=== PATIENT | female | born 1960 | race Caucasian/White ===

== ENCOUNTER 2016-08-09 10:33 | Emergency (ER) | payer OTHER | END 2016-08-09 12:30 | disposition home or self-care (01) | DX: M62.830 Muscle spasm of back (principal); M54.32 Sciatica, left side; R03.0 Elevated blood-pressure reading, without diagnosis of hypertension ==

== ENCOUNTER 2017-01-10 12:40 | Emergency (ER) | payer OTHER ==
--- NOTE | 2017-01-10 13:51 | ED Physician Documentation ---
PD HPI NECK PAIN - Stated complaint Stated Complaint: NECK INJURY - Chief complaint Chief Complaint: General - History obtained from History obtained from: Patient - History of Present Illness Timing - onset: How many days ago (few days ago on roller coaster at [place] [employer] , had twist of neck with pain at the time.) Timing - duration: Days (few) Timing - details: Abrupt onset, Still present Location: Mid, Lower, Left Quality: Pain, Spasm, Aching Associated symptoms: No: Fever, Weakness, Numbness, Incontinent of urine Worsened by: Twisting Contributing factors: Twisting Similar symptoms before: Has not had sx before Recently seen: Not recently seen Review of Systems Constitutional: denies: Fever, Chills Ears: denies: Ear pain Throat: denies: Sore throat Cardiac: denies: Chest pain / pressure, Palpitations Respiratory: denies: Dyspnea, Cough Neurologic: denies: Focal weakness, Numbness, Altered mental status, Headache, Head injury PD PAST MEDICAL HISTORY - Past Medical History Cardiovascular: None Respiratory: None Neuro: None Endocrine/Autoimmune: None GI: None 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 Psych: Depression Musculoskeletal: Fibromyalgia, Other - Past Surgical History Past Surgical History: Yes - Present Medications Home Medications: Ambulatory Orders Medication Instructions Recorded Confirmed Escitalopram [Lexapro] 0 mg ORAL DAILY 11/03/15 08/09/16 Gabapentin 150 mg ORAL TID 01/13/16 08/09/16 Hydrocodone/Acetaminophen 1 - 2 each PO Q6H PRN #14 tablet 08/09/16 [Hydrocodon-Acetaminophen 5-325] Methocarbamol [Robaxin-750] 750 mg PO Q8H PRN #14 tablet 08/09/16 HYDROcod/ACETAM 5/325 [[place] 5/325] 1 tab PO Q6H PRN #20 tablet 01/10/17 Methocarbamol [Robaxin] 500 mg PO Q6H PRN #25 tablet 01/10/17 - Allergies Allergies/Adverse Reactions: Allergies Allergy/AdvReac Type Severity Reaction Status Date / Time No Known Drug Allergies Allergy Verified 01/13/16 08:34 - Social History Does the pt smoke?: No Smoking Status: Never smoker Does the pt drink ETOH?: No Does the pt have substance abuse?: No - Immunizations Immunizations are current?: Yes - POLST Patient has POLST: No PD ED PE NORMAL - Vitals Vital signs reviewed: Yes - General General: Alert and oriented X 3, No acute distress, Well developed/nourished - HEENT HEENT: Pharynx benign - Neck Neck: Supple, no meningeal sign, No bony TTP (tender left lateral muscles. ), No adenopathy - Respiratory Respiratory: No respiratory distress, Clear bilaterally - Back Back: No spinal TTP - Derm Derm: Normal color, Warm and dry - Neuro Neuro: Alert and oriented X 3, No motor deficit, No sensory deficit, Normal speech Results - Vitals Vitals: Oxygen O2 Source Room air PD MEDICAL DECISION MAKING - ED course Complexity details: considered differential, d/w patient Departure - Departure Disposition: Home, Self Care Clinical Impression: Cervical strain Qualifiers: Encounter type: initial encounter Qualified Code(s): S16.1XXA - Strain of muscle, fascia and tendon at neck level, initial encounter Condition: Stable Record reviewed to determine appropriate education?: Yes Instructions: ED Sprain Strain Neck Prescriptions: HYDROcod/ACETAM 5/325 [[place] 5/325] 1 tab PO Q6H PRN #20 tablet PRN Reason: Pain Methocarbamol [Robaxin] 500 mg PO Q6H PRN #25 tablet PRN Reason: Spasms Comments: Continue ibuprofen 400-600 mg 3 times a day. Ice to the area if it feels better. Could also try heat to reduce stiffness. Methocarbamol for muscle spasms. Add Tylenol or hydrocodone if needed for pain. Recheck if not better over the next several days. Discharge Date/Time: 01/10/17 14:35
[2017-01-10] MEDS ORDERED: IBUPROFEN 600 MG TABLET PO STA (13:58)
[2017-01-10] MEDS ORDERED: TRIAMCINOLONE 40 MG/ML VIAL IM STA (13:58)
[2017-01-10] MEDS ORDERED: ACETAMINOPHEN 325 MG TABLET PO STA (13:58)
[2017-01-10] MEDS ORDERED: ACETAMINOPHEN 325 MG TABLET PO ONE (14:01)
[2017-01-10] MEDS ORDERED: TRIAMCINOLONE 40 MG/ML VIAL ONE (14:01)
[2017-01-10] MEDS ORDERED: IBUPROFEN 600 MG TABLET PO ONE (14:02)
[2017-01-10 14:31] VITALS: BP 148/97
== END 2017-01-10 14:35 | disposition home or self-care (01) ==
LOC: ED 12:40
DX: S16.1XXA Strain of muscle, fascia and tendon at neck level, initial encounter (principal); X50.0XXA Overexertion from strenuous movement or load, initial encounter; Y93.I1 Activity, roller coaster riding; Y92.831 Amusement park as the place of occurrence of the external cause; M79.7 Fibromyalgia
CPT/HCPCS: 96372; 99283; A9270

== ENCOUNTER 2017-01-31 13:06 | Emergency (ER) | payer OTHER ==
--- NOTE | 2017-01-31 14:18 | ED Physician Documentation ---
PD HPI LOWER EXT INJURY - Stated complaint Stated Complaint: LEFT TOE INJ - Chief complaint Chief Complaint: Ext Problem - History obtained from History obtained from: Patient - History of Present Illness PD HPI LOW EXT INJURY LOCATION: Left, Foot Type of injury: Blunt / blow Where injury occurred: Home Timing - onset: How many days ago (3) Timing - duration: Days (3) Timing - details: Abrupt onset, Still present Improved by: Rest, Ice, Immobilization Worsened by: Moving, Palpating Associated symptoms: Swelling. No: Weakness, Numbness Contributing factors: No: Anticoagulated Similar symptoms before: Has not had sx before Recently seen: Not recently seen - Additional information Additional information: 56-year-old female stubbed her toes on the right side while she was camping and she has developed pain in the toes and is having some difficulty walking having to limp when she walks. She is having some swelling and discoloration. The pain is mostly to the second through fifth toe on the dorsal surface. Review of Systems Constitutional: denies: Fever Respiratory: denies: Cough GI: denies: Vomiting Skin: denies: Rash Musculoskeletal: reports: Extremity pain, Extremity swelling, Pain with weight bearing. 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 Psych: Depression Musculoskeletal: Fibromyalgia, Other - Past Surgical History Past Surgical History: Yes - Present Medications Home Medications: Ambulatory Orders Medication Instructions Recorded Confirmed Escitalopram [Lexapro] 10 mg ORAL DAILY 11/03/15 01/31/17 Gabapentin 150 mg ORAL TID 01/13/16 01/31/17 HYDROcod/ACETAM 5/325 [[place] 5/325] 1 - 2 ea PO Q6H PRN #15 tablet 01/31/17 - Allergies Allergies/Adverse Reactions: Allergies Allergy/AdvReac Type Severity Reaction Status Date / Time No Known Drug Allergies Allergy Verified 01/31/17 14:13 - Social History Does the pt smoke?: No Smoking Status: Never smoker Does the pt drink ETOH?: No Does the pt have substance abuse?: No - Immunizations Immunizations are current?: Yes - POLST Patient has POLST: No PD ED PE NORMAL - Vitals Vital signs reviewed: Yes (hypertensive ) - General General: No acute distress, Well developed/nourished - HEENT HEENT: Atraumatic, PERRL - Respiratory Respiratory: No respiratory distress - Derm Derm: Normal color, Warm and dry, No rash - Extremities Extremities: Other (There is tenderness swelling and discoloration over the second through fifth toe on the left foot. Distal neurovascular components are intact the nails all appear intact. She does not have pain to palpation of the plantar surface of the distal metatarsals.) - Neuro Neuro: No motor deficit, No sensory deficit - Psych Psych: Normal mood, Normal affect Results - Vitals Vitals: Vital Signs - 24 hr 01/31/17 13:11 Temperature 36.5 C Heart Rate 100 Respiratory 18 Rate Blood Pressure 164/84 H O2 Saturation 96 Oxygen O2 Source Room air - Rads (name of study) Left foot Radiology: Prelim report reviewed (Impression: No fracture.), EMP read indepedently, See rad report PD MEDICAL DECISION MAKING - ED course Complexity details: reviewed results, re-evaluated patient, considered differential, d/w patient ED course: 56-year-old female who stubbed her toes without evidence of fracture. Departure - Departure Disposition: 01 Home, Self Care Clinical Impression: Contusion of left foot including toes Qualifiers: Encounter type: initial encounter Qualified Code(s): S90.122A - Contusion of left lesser toe(s) without damage to nail, initial encounter Condition: Stable Instructions: ED Contusion Foot Follow-Up: Your, doctor [Other] Prescriptions: HYDROcod/ACETAM 5/325 [[place] 5/325] 1 - 2 ea PO Q6H PRN #15 tablet PRN Reason: Pain Comments: Today in the Emergency Department your blood pressure was elevated. This can happen from the stress of the visit itself, from a current illness or circumstance or from uncontrolled hypertension. If you take blood pressure medications take your usual mediations, have your blood pressure re-checked in an appropriate setting and follow up any elevation with your primary care doctor.
--- NOTE | 2017-01-31 15:15 | XRAY Preliminary Report ---
Exam: XR Foot 3 View LT IMPRESSION: No fracture. [facility] SITE ID: [id number]
--- NOTE | 2017-01-31 15:18 | XRAY Report ---
EXAM: LEFT FOOT RADIOGRAPHY EXAM DATE: 01/31/2017 02:43 PM. CLINICAL HISTORY: Stubbed 2,3,4. COMPARISON: None. TECHNIQUE: 3 views. FINDINGS: Bones: Normal. No fractures or bone lesions. Joints: Normal. No subluxations. Soft Tissues: Normal. No soft tissue swelling. IMPRESSION: No fracture. [facility] Referring Provider Line: [phone] SITE ID: [id number]
[2017-01-31 16:16] VITALS: BP 162/97
== END 2017-01-31 16:14 | disposition home or self-care (01) ==
LOC: ED 13:06
DX: S90.122A Contusion of left lesser toe(s) without damage to nail, initial encounter (principal); W18.40XA Slipping, tripping and stumbling without falling, unspecified, initial encounter; Y92.009 Unspecified place in unspecified non-institutional (private) residence as the place of occurrence of the external cause; R03.0 Elevated blood-pressure reading, without diagnosis of hypertension; M79.7 Fibromyalgia
CPT/HCPCS: 99283

== ENCOUNTER 2017-05-17 12:48 | Emergency (ER) | payer OTHER ==
[2017-05-17 12:54] VITALS: BP 157/99
--- NOTE | 2017-05-17 12:57 | ED Physician Documentation ---
PD HPI URI - History obtained from History obtained from: Patient - History of Present Illness Timing duration: Other (She has an ongoing sinus infection with facial pain on the left side, it radiates into the teeth and ear and is worse if she leans forward he gets exposed to a cold wind. She has sinus congestion with drainage that is foul-smelling especially in the morning. There is no associated diplopia or fever. About 4 weeks ago she took a 10 day course of Augmentin which was very helpful but the symptoms relapsed 4 days ago.) <Elvin Lowery - Last Filed: 05/17/17 13:03> - History obtained from History obtained from: Patient <BlueSean - Last Filed: 05/17/17 13:05> - Stated complaint Stated Complaint: LT FACIAL PX - Chief complaint Chief Complaint: Heent Review of Systems Constitutional: reports: Fatigue. denies: Fever, Chills Ears: reports: Ear pain Nose: reports: Rhinorrhea / runny nose, Congestion, Sinus pressure / pain. 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 Psych: Depression Musculoskeletal: Fibromyalgia, Other - Past Surgical History Past Surgical History: Yes - Social History Does the pt smoke?: No Smoking Status: Never smoker Does the pt drink ETOH?: No Does the pt have substance abuse?: No - Immunizations Immunizations are current?: Yes - POLST Patient has POLST: No <BlueSean - Last Filed: 05/17/17 13:05> - Present Medications Home Medications: Ambulatory Orders Medication Instructions Recorded Confirmed Escitalopram [Lexapro] 10 mg ORAL DAILY 11/03/15 05/17/17 Amox/Clav 875/125 [Augmentin] 1 each PO Q12H #28 tablet 05/17/17 HYDROcod/ACETAM 5/325 [[place] 5/325] 1 - 2 ea PO Q6H PRN #10 tablet 05/17/17 Mometasone Furoate [Nasonex] 1 spray NS BID #1 spray.pump 05/17/17 predniSONE [Deltasone] 60 mg PO DAILY 5 Days tablet 05/17/17 - Allergies Allergies/Adverse Reactions: Allergies Allergy/AdvReac Type Severity Reaction Status Date / Time No Known Drug Allergies Allergy Verified 05/17/17 12:53 PD ED PE NORMAL - Vitals Vital signs reviewed: Yes - General General: Alert and oriented X 3, No acute distress - HEENT HEENT: Other (Left maxillary and frontal sinus tenderness, she has a lot of dental work but none of her teeth are tender. Smile is symmetric and extraocular movements are intact, TM is slightly red on the left but without fluid behind it.) - Neck Neck: Supple, no meningeal sign, No bony TTP - Neuro Neuro: Alert and oriented X 3, search marketing specialist 2-12 intact, Normal speech - Psych Psych: Normal mood, Normal affect <Elvin Lowery - Last Filed: 05/17/17 13:03> - Vitals Vitals: Vital Signs - 24 hr 05/17/17 12:50 Temperature 36.9 C Heart Rate 96 Respiratory 18 Rate Blood Pressure 157/99 H O2 Saturation 99 Oxygen O2 Source Room air PD MEDICAL DECISION MAKING <Elvin Lowery - Last Filed: 05/17/17 13:03> <Sean Blue - Last Filed: 05/17/17 13:05> - ED course ED course: The patient and family were counseled as to the diagnosis and need for follow- up. I counseled the patient with regard to signs and symptoms that would necessitate an urgent reevaluation in the emergency department. They understand they are welcome to return at any time if worse or if not improving as expected. This document was made in part using voice recognition software. While efforts are made to proofread this documents, sound alike and grammatical errors may occur. (Elvin Lowery) Departure - Departure Record reviewed to determine appropriate education?: Yes <Elvin Lowery - Last Filed: 05/17/17 13:03> <Sean Blue - Last Filed: 05/17/17 13:05> - Departure Disposition: 01 Home, Self Care Clinical Impression: Sinusitis Qualifiers: Sinusitis location: maxillary Chronicity: acute Recurrence: recurrent Qualified Code(s): J01.01 - Acute recurrent maxillary sinusitis Condition: Good Instructions: ED Sinusitis Abx Tx Prescriptions: Amox/Clav 875/125 [Augmentin] 1 each PO Q12H #28 tablet HYDROcod/ACETAM 5/325 [[place] 5/325] 1 - 2 ea PO Q6H PRN #10 tablet PRN Reason: Pain Mometasone Furoate [Nasonex] 1 spray NS BID #1 spray.pump predniSONE [Deltasone] 60 mg PO DAILY 5 Days tablet Comments: Call your doctor to arrange a follow-up appointment, make the next available appointment. In the interim, return anytime if worse or if new symptoms develop. Your blood pressure was elevated today on check into the emergency department. This does not mean that you have hypertension, it is a common phenomenon to come to the emergency department and have elevated blood pressure. I recommend that you see your primary care physician within the week to have it rechecked when you are feeling better.
== END 2017-05-17 13:11 | disposition home or self-care (01) ==
LOC: ED 12:48
DX: J01.01 Acute recurrent maxillary sinusitis (principal); R03.0 Elevated blood-pressure reading, without diagnosis of hypertension
CPT/HCPCS: 99283

== ENCOUNTER 2017-06-06 08:02 | Outpatient (CLI) | payer OTHER | END 2017-06-06 08:03 | disposition home or self-care (01) | LOC: DI 08:02 | PROVIDERS: ATTEND Family Medicine | DX: R00.2 Palpitations (principal) | CPT/HCPCS: 93306 ==

== ENCOUNTER 2017-06-26 10:56 | Emergency (ER) | payer OTHER ==
[2017-06-26 11:10] VITALS: BP 146/83
--- NOTE | 2017-06-26 13:31 | ED Physician Documentation ---
History of Present Illness - Stated complaint Stated Complaint: CONGESTION - Chief complaint Chief Complaint: General - History obtained from History obtained from: Patient - History of Present Illness Timing: How many weeks ago (12) Pain level max: 8 Pain level now: 8 Improved by: vicodin Worsened by: bending over - Additonal information Additional information: Patient is a 48-year-old female who presents to the emergency department complaining of left-sided facial pain for the past 12-14 weeks. It improves mildly with antibiotics, then recurs. Has had sinus surgery 2. Is awaiting an ENT referral from her doctor. Contacted her primary care provider last week , but they state they have no appointments for her. Therefore she came to the emergency department. No fevers. No vomiting. Does have rhinorrhea and congestion. She is currently on Claritin. 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 Psych: Depression Musculoskeletal: Fibromyalgia, Other - Past Surgical History Past Surgical History: Yes - Present Medications Home Medications: Ambulatory Orders Medication Instructions Recorded Confirmed Escitalopram [Lexapro] 10 mg ORAL DAILY 11/03/15 06/26/17 Mometasone Furoate [Nasonex] 1 spray NS BID #1 spray.pump 05/17/17 06/26/17 Clindamycin HCl [Clindamycin 300MG 300 mg PO Q6H #40 capsule 06/26/17 CAP] Hydrocodone/Acetaminophen 1 - 2 each PO Q6H PRN #14 tablet 06/26/17 [Hydrocodon-Acetaminophen 5-325] amLODIPine [Norvasc] 1 tab PO DAILY 06/26/17 06/26/17 predniSONE [Prednisone] 40 mg PO DAILY #10 tablet 06/26/17 - Allergies Allergies/Adverse Reactions: Allergies Allergy/AdvReac Type Severity Reaction Status Date / Time No Known Drug Allergies Allergy Verified 06/26/17 11:10 - Social History Does the pt smoke?: No Smoking Status: Never smoker Does the pt drink ETOH?: No Does the pt have substance abuse?: No - Immunizations Immunizations are current?: Yes - POLST Patient has POLST: No PD ED PE NORMAL - Vitals Vital signs reviewed: Yes - General General: Alert and oriented X 3, No acute distress - HEENT HEENT: Ears normal, Moist mucous membranes, Pharynx benign, Other (TTP over the L maxillary and frontal sinuses.) - Neck Neck: Supple, no meningeal sign, No adenopathy - Cardiac Cardiac: RRR - Respiratory Respiratory: No respiratory distress, Clear bilaterally - Abdomen Abdomen: Soft, Non tender, Non distended - Derm Derm: Warm and dry - Neuro Neuro: Alert and oriented X 3 Results - Vitals Vitals: Vital Signs - 24 hr 06/26/17 11:06 Temperature 36.8 C Heart Rate 84 Respiratory 20 Rate Blood Pressure 146/83 H O2 Saturation 97 Oxygen O2 Source Room air PD MEDICAL DECISION MAKING - ED course Complexity details: considered differential, d/w patient ED course: Patient is a 56-year-old female presents to the emergency department with what appears to be chronic sinusitis. Will place her back on antibiotics and pain medication. We will have her do saline nasal rinses. Also place on oral steroids. We will have her change from Claritin to Claritin-D and see if this helps her symptoms. Will have her follow-up with her doctor for further evaluation and care. She is well-appearing, nontoxic. Afebrile. Inflamed nasal turbinates on examination of the nasopharynx. Patient counseled regarding signs and symptoms for which I believe and urgent re-evaluation would be necessary. Patient with good understanding of and agreement to plan and is comfortable going home at this time This document was made in part using voice recognition software. While efforts are made to proofread this document, sound alike and grammatical errors may occur. Departure - Departure Disposition: 01 Home, Self Care Clinical Impression: Chronic sinusitis Qualifiers: Sinusitis location: maxillary Qualified Code(s): J32.0 - Chronic maxillary sinusitis Condition: Good Instructions: ED Sinusitis Abx Tx Follow-Up: MURALI AZEVEDO [Primary Care Provider] - Within 1 week Prescriptions: Clindamycin HCl [Clindamycin 300MG CAP] 300 mg PO Q6H #40 capsule Hydrocodone/Acetaminophen [Hydrocodon-Acetaminophen 5-325] 1 - 2 each PO Q6H PRN #14 tablet PRN Reason: pain predniSONE [Prednisone] 40 mg PO DAILY #10 tablet Comments: You should also be performing saline irrigation of your sinuses twice a day. A netti pot or similar can be used for this. Return if you worsen. You should also change to claritin D. Do not drink alcohol or drive while on narcotic pain medicine. Note that many narcotic pain relievers also contain tylenol/acetaminophen. Please ensure that your total dose of acetaminophen from all sources does not exceed 3 grams (3000mg) per day. You may constipated on this medication, take a stool softener such as "Colace" twice a day while you are on it. Also recommend a elju-ebk-bmzmkei laxative such as senna or MiraLAX any day that you do not have a bowel movement. If you received narcotic pain medication in the emergency department, do not drive or operate machinery for the next 24 hours.
== END 2017-06-26 13:49 | disposition home or self-care (01) ==
LOC: ED 10:56
DX: J32.0 Chronic maxillary sinusitis (principal)
CPT/HCPCS: 99283

== ENCOUNTER 2017-09-28 13:36 | Emergency (ER) | payer OTHER ==
--- NOTE | 2017-09-28 14:02 | ED Physician Documentation ---
PD PAINTING HEENT - Stated complaint Stated Complaint: CONGESTION - Chief complaint Chief Complaint: Heent - History obtained from History obtained from: Patient - History of Present Illness Timing - onset: Other (2 months of sinus pain, she has had 2 rounds of antibiotics, clindamycin in June was somewhat helpful, amoxicillin clavulanic acid [place] about a [place] was less so. Also steroids are helpful. She complains mostly of left maxillary sinus pain that radiates to the teeth and is much worse when leaning forward. There is no fevers.) Review of Systems Constitutional: denies: Fever, Chills Nose: reports: Congestion. 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 Psych: Depression Musculoskeletal: Fibromyalgia, Other - Past Surgical History Past Surgical History: Yes - Present Medications Home Medications: Ambulatory Orders Medication Instructions Recorded Confirmed Escitalopram [Lexapro] 10 mg ORAL DAILY 11/03/15 06/26/17 Mometasone Furoate [Nasonex] 1 spray NS BID #1 spray.pump 05/17/17 06/26/17 Clindamycin HCl [Clindamycin 300MG 300 mg PO Q6H #40 capsule 06/26/17 CAP] Hydrocodone/Acetaminophen 1 - 2 each PO Q6H PRN #14 tablet 06/26/17 [Hydrocodon-Acetaminophen 5-325] amLODIPine [Norvasc] 1 tab PO DAILY 06/26/17 06/26/17 predniSONE [Prednisone] 40 mg PO DAILY #10 tablet 06/26/17 Clindamycin [Cleocin] 300 mg PO Q6H 10 Days capsule 09/28/17 HYDROcod/ACETAM 5/325 [[place] 5/325] 1 - 2 ea PO Q6H PRN #15 tablet 09/28/17 predniSONE [Deltasone] 20 mg PO [id number] #21 tab 09/28/17 - Allergies Allergies/Adverse Reactions: Allergies Allergy/AdvReac Type Severity Reaction Status Date / Time No Known Drug Allergies Allergy Verified 06/26/17 11:10 - Social History Does the pt smoke?: No Smoking Status: Never smoker Does the pt drink ETOH?: No Does the pt have substance abuse?: No - Immunizations Immunizations are current?: Yes - POLST Patient has POLST: No PD ED PE NORMAL - Vitals Vital signs reviewed: Yes - General General: Alert and oriented X 3, No acute distress - HEENT HEENT: Other (Tender left maxillary sinus, TMs and oropharynx normal.) - Neck Neck: Supple, no meningeal sign, No bony TTP - Neuro Neuro: Alert and oriented X 3, Normal speech Results - Vitals Vitals: Vital Signs - 24 hr 09/28/17 13:41 Temperature 36.4 C L Heart Rate 104 H Respiratory 17 Rate Blood Pressure 141/100 H O2 Saturation 96 Oxygen O2 Source Room air PD MEDICAL DECISION MAKING - ED course ED course: Given long time course, antibiotic therapy is recommended per IDSA guidelines. I did not use amoxicillin clavulanic acid because that has already failed to help her and she has failed treatment with this. Departure - Departure Disposition: 01 Home, Self Care Clinical Impression: Sinusitis Qualifiers: Sinusitis location: maxillary Chronicity: chronic Qualified Code(s): J32.0 - Chronic maxillary sinusitis Condition: Good Record reviewed to determine appropriate education?: Yes Instructions: ED Sinusitis Abx Tx Prescriptions: Clindamycin [Cleocin] 300 mg PO Q6H 10 Days capsule HYDROcod/ACETAM 5/325 [[place] 5/325] 1 - 2 ea PO Q6H PRN #15 tablet PRN Reason: Pain predniSONE [Deltasone] 20 mg PO [id number] #21 tab Comments: Call your doctor to arrange a follow-up appointment, make the next available appointment. In the interim, return anytime if worse or if new symptoms develop. Your blood pressure was elevated today on check into the emergency department. This does not mean that you have hypertension, it is a common phenomenon to come to the emergency department and have elevated blood pressure. I recommend that you see your primary care physician within the week to have it rechecked when you are feeling better. Do not drink or drive while taking narcotic pain medication. Note that many narcotic pain relievers also contain Tylenol/acetaminophen. Please ensure that your total dose of acetaminophen from all sources does not exceed 3 g (3000 mg) per day. You may get constipated while on this medication. Take a stool softener such as Colace twice a day while you are on it. Also add an rjhd-ohb-heywxcc laxative such as senna or MiraLAX on any day that you do not have a bowel movement. If you received a narcotic pain medication or sedative while in the emergency department, do not drive for the next 24 hours.
[2017-09-28 14:25] VITALS: BP 158/90
== END 2017-09-28 14:34 | disposition home or self-care (01) ==
LOC: ED 13:36
DX: J32.0 Chronic maxillary sinusitis (principal); R03.0 Elevated blood-pressure reading, without diagnosis of hypertension
CPT/HCPCS: 99283

== ENCOUNTER 2017-10-19 07:41 | Outpatient (CLI) | payer OTHER ==
--- NOTE | 2017-10-19 10:14 | CARDIAC PROCEDURE NOTE ---
DATE OF SERVICE: 10/19/2017 Physician: Taylor Carbajal [facility] PHYSICIAN: Godfrey Ding MD, PHD MANAGER LICENSING: Dr. Gage PROCEDURE DIAGNOSES 1. Palpitations. 2. Dyspnea on exertion. CARDIAC RISK FACTORS: Age and hypertension. PREVIOUS CARDIAC PROCEDURES: None. CLINICAL HISTORY: A 56-year-old female without known coronary artery disease. INITIAL RESTING VITAL SIGNS: BP 164/92, heart rate 82, height 68 inches, weight 193 pounds, BMI 29.35. PROCEDURE AND FINDINGS: Patient identity and date verified. Consent signed. DESCRIPTION OF PROCEDURE: Patient performed treadmill exercise using a Anthony protocol, completing 9 minutes, 03 seconds and completing an estimated workload of 10.2 metabolic equivalents. Maximal blood pressure was 210/80 with a heart rate of 174 beats per minute or 107% of maximum predicted heart rate for age. The blood pressure response to exercise was within normal limits. Patient stopped because of symptoms of getting out of breath and tiring and because greater than 100% predicted heart rate was achieved. The resting ECG demonstrated normal sinus rhythm with no abnormality. Maximum ST segment depression was less than 0.5 mm and upsloping. There were 2 PVC couplets in the first minute of recovery. Oximetry done during the testing and in recovery showed a minimum O2 saturation of 96%, and maximum of 99%. FINAL IMPRESSIONS 1. Good quality test. 2. Negative stress electrocardiogram for ischemia by electrocardiographic criteria. 3. Negative stress test clinically for angina. 4. Two PVC couplet ectopy seen. 5. Exceeded predicted exercise time of 7 minutes, 15 seconds. 6. No oxygen desaturation with exercise. TD: 10/19/2017 10:13
[2017-10-19 17:47] VITALS: BP 164/92
--- NOTE | 2017-10-24 13:19 | XRAY Report ---
CARDIOVASCULAR TREADMILL TEST: There was no imaging performed for this exam. Procedure notes and results available in the EMR. MAYNOR
== END 2017-10-19 07:42 | disposition home or self-care (01) ==
LOC: DI 07:41
PROVIDERS: ATTEND Internal Medicine Cardiovascular Disease
DX: R00.2 Palpitations (principal)
CPT/HCPCS: 93016; 93017; 93018

== ENCOUNTER 2018-01-31 12:49 | Emergency (ER) | payer OTHER ==
[2018-01-31] MEDS ORDERED: HYDROmorphone 2 MG/ML VIAL IVP STA (13:14)
[2018-01-31] MEDS ORDERED: ONDANSETRON 4 MG/2 ML VIAL IVP STA (13:14)
--- NOTE | 2018-01-31 13:19 | ED Physician Documentation ---
PD HPI BACK PAIN - Stated complaint Stated Complaint: BACK PX - Chief complaint Chief Complaint: Back Pain - History obtained from History obtained from: Patient - History of Present Illness Timing - onset: Other (57-year-old woman with chronic back pain who for the last couple of days has had a new and different right flank pain that is worse with motion but today also developed nausea vomiting and diarrhea. This is much different than her usual back pain. There is no weakness, numbness, or tingling of the saddle area or extremities. No incontinence or urinary complaints. No fevers.) Review of Systems Ten Systems: 10 systems reviewed and negative Constitutional: denies: Fever, Chills Cardiac: denies: Chest pain / pressure, Palpitations Respiratory: denies: Dyspnea, Cough GI: reports: Nausea, Vomiting. 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 Psych: Depression Musculoskeletal: Fibromyalgia, Other - Past Surgical History Past Surgical History: Yes - Present Medications Home Medications: Ambulatory Orders Medication Instructions Recorded Confirmed Escitalopram [Lexapro] 10 mg ORAL DAILY 11/03/15 06/26/17 Mometasone Furoate [Nasonex] 1 spray NS BID #1 spray.pump 05/17/17 06/26/17 Clindamycin HCl [Clindamycin 300MG 300 mg PO Q6H #40 capsule 06/26/17 CAP] Hydrocodone/Acetaminophen 1 - 2 each PO Q6H PRN #14 tablet 06/26/17 [Hydrocodon-Acetaminophen 5-325] amLODIPine [Norvasc] 1 tab PO DAILY 06/26/17 06/26/17 predniSONE [Prednisone] 40 mg PO DAILY #10 tablet 06/26/17 Clindamycin [Cleocin] 300 mg PO Q6H 10 Days capsule 09/28/17 HYDROcod/ACETAM 5/325 [[place] 5/325] 1 - 2 ea PO Q6H PRN #15 tablet 09/28/17 predniSONE [Deltasone] 20 mg PO [id number] #21 tab 09/28/17 Cyclobenzaprine [Flexeril] 10 mg PO TID PRN #20 tablet 01/31/18 HYDROcod/ACETAM 5/325 [[place] 5/325] 1 - 2 ea PO Q6H PRN #15 tablet 01/31/18 - Allergies Allergies/Adverse Reactions: Allergies Allergy/AdvReac Type Severity Reaction Status Date / Time No Known Drug Allergies Allergy Verified 06/26/17 11:10 - Social History Does the pt smoke?: No Smoking Status: Never smoker Does the pt drink ETOH?: No Does the pt have substance abuse?: No - Immunizations Immunizations are current?: Yes - POLST Patient has POLST: No PD ED PE NORMAL - Vitals Vital signs reviewed: Yes - General General: Alert and oriented X 3, Other (Appears uncomfortable) - HEENT HEENT: PERRL, EOMI - Neck Neck: Supple, no meningeal sign, No bony TTP - Cardiac Cardiac: RRR, No murmur - Respiratory Respiratory: No respiratory distress, Clear bilaterally - Abdomen Abdomen: Normal bowel sounds, Soft, Other (She is focally tender in the epigastrium and right upper quadrant with positive Feliciano sign) - Back Back: No CVA TTP, No spinal TTP - Extremities Extremities: No edema, No calf tenderness / cord, Other (The patient has equal and normal Achilles and patellar reflexes bilaterally. Normal sensation in all areas of the legs. Patient denies saddle anesthesia. Normal strength in flexion-extension at the ankles, knees, and flexion of the hips.) - Neuro Neuro: Alert and oriented X 3, Normal speech Results - Vitals Vitals: Vital Signs - 24 hr 01/31/18 01/31/18 01/31/18 13:02 14:15 16:03 Temperature 35.3 C L Heart Rate 101 H 88 95 Respiratory 22 16 20 Rate Blood Pressure 143/68 H 142/76 H 139/97 H O2 Saturation 98 96 97 Oxygen O2 Source Room air - Labs Labs: Laboratory Tests 01/31/18 01/31/18 01/31/18 13:23 13:23 15:20 WBC 8.7 RBC 5.20 Hgb 15.4 Hct 44.6 MCV 85.8 MCH 29.7 MCHC 34.6 RDW 13.0 Plt Count 290 MPV 6.2 L Neut # (Auto) 6.2 Lymph # (Auto) 1.8 [place] # (Auto) 0.6 Eos # (Auto) 0.1 Baso # (Auto) 0.0 Absolute Nucleated RBC 0.01 Nucleated RBC % 0.1 Sodium 140 Potassium 3.6 Chloride 104 Carbon Dioxide 27 Anion Gap 9.0 BUN 10 Creatinine 0.9 Estimated GFR (MDRD) 64 L Glucose 106 H Calcium 9.7 Total Bilirubin 0.8 AST 25 ALT 22 Alkaline Phosphatase 51 Total Protein 8.1 Albumin 4.4 Globulin 3.7 Albumin/Globulin Ratio 1.2 Lipase 27 Urine Color YELLOW Urine Clarity CLEAR Urine pH 6.0 Ur Specific [place] >=1.030 H Urine Protein NEGATIVE Urine Glucose (UA) NEGATIVE Urine Ketones 15 H Urine Occult Blood TRACE-LYSE Urine Nitrite NEGATIVE Urine Bilirubin NEGATIVE Urine Urobilinogen 0.2 (NORMAL) Ur Leukocyte Esterase NEGATIVE Ur Microscopic Review NOT INDICATED Urine Culture Comments NOT INDICATED - Rads (name of study) RUQ Sono Radiology: Prelim report reviewed (Hepatic steatosis, no stones) PD MEDICAL DECISION MAKING - ED course ED course: She has right flank pain, on exam was concerning for maybe biliary colic with right upper quadrant tenderness. However no evidence of this on workup. Better after medications. - Sepsis Event Vital Signs: Vital Signs - 24 hr 01/31/18 01/31/18 01/31/18 13:02 14:15 16:03 Temperature 35.3 C L Heart Rate 101 H 88 95 Respiratory 22 16 20 Rate Blood Pressure 143/68 H 142/76 H 139/97 H O2 Saturation 98 96 97 Oxygen O2 Source Room air Departure - Departure Disposition: 01 Home, Self Care Clinical Impression: Back pain Qualifiers: Back pain location: low back pain Chronicity: acute Back pain laterality: right Sciatica presence: without sciatica Qualified Code(s): M54.5 - Low back pain Abdominal tenderness Qualifiers: Abdominal location: right upper quadrant Presence of rebound: absent Qualified Code(s): R10.811 - Right upper quadrant abdominal tenderness Condition: Good Record reviewed to determine appropriate education?: Yes Instructions: ED Neck Back Pain General Prescriptions: Cyclobenzaprine [Flexeril] 10 mg PO TID PRN #20 tablet PRN Reason: Pain HYDROcod/ACETAM 5/325 [[place] 5/325] 1 - 2 ea PO Q6H PRN #15 tablet PRN Reason: Pain Comments: Call your doctor to arrange a follow-up appointment, make the next available appointment. In the interim, return anytime if worse or if new symptoms develop. Your blood pressure was elevated today on check into the emergency department. This does not mean that you have hypertension, it is a common phenomenon to come to the emergency department and have elevated blood pressure. I recommend that you see your primary care physician within the week to have it rechecked when you are feeling better. Do not drink or drive while taking narcotic pain medication. Note that many narcotic pain relievers also contain Tylenol/acetaminophen. Please ensure that your total dose of acetaminophen from all sources does not exceed 3 g (3000 mg) per day. You may get constipated while on this medication. Take a stool softener such as Colace twice a day while you are on it. Also add an [id number] laxative such as senna or MiraLAX on any day that you do not have a bowel movement. If you received a narcotic pain medication or sedative while in the emergency department, do not drive for the next 24 hours. Discharge Date/Time: 01/31/18 16:03
[2018-01-31 13:31] LABS: BASOPHILS % (AUTO) 0.5 %; EOSINOPHILS # (AUTO) 0.1 10^3/uL (0.0-0.7); EOSINOPHILS % (AUTO) 0.8 %; HGB - HEMOGLOBIN 15.4 g/dL (12.0-16.0); LYMPHOCYTES # (AUTO) 1.8 10^3/uL (1.5-3.5); MEAN CORPUSCULAR HEMOGLOBIN 29.7 pg (27.0-31.0); MEAN CORPUSCULAR HGB CONC 34.6 g/dL (32.0-36.0); MEAN CORPUSCULAR VOLUME 85.8 fL (81.0-99.0); MEAN PLATELET VOLUME 6.2 fL (7.9-10.8); MONOCYTES # (AUTO) 0.6 10^3/uL (0.0-1.0); MONOCYTES % (AUTO) 6.5 %; NEUTROPHILS # (AUTO) 6.2 10^3/uL (1.5-6.6); NEUTROPHILS % (AUTO) 71.2 %; PLT - PLATELET COUNT 290 10^3/uL (130-450); WHITE BLOOD COUNT 8.7 x10^3/uL (4.8-10.8)
[2018-01-31 13:43] LABS: ALBUMIN 4.4 g/dL (3.2-5.5); ALBUMIN/GLOBULIN RATIO 1.2 (1.0-2.2); BILIRUBIN,TOTAL 0.8 mg/dL (0.2-1.0); CALCIUM 9.7 mg/dL (8.5-10.3); CREATININE 0.9 mg/dL (0.4-1.0); TOTAL PROTEIN 8.1 g/dL (6.7-8.2)
--- NOTE | 2018-01-31 15:25 | Ultrasound Report ---
Procedure Date: 01/31/2018 Accession Number: [id number] / [id number] Procedure: US - Abdomen Limited CPT Code: FULL RESULT: EXAM: ABDOMEN ULTRASOUND LIMITED, RUQ EXAM DATE: 01/31/2018 02:49 PM. CLINICAL HISTORY: RUQ pain - back. COMPARISON: None. TECHNIQUE: Real-time scanning was performed with static images obtained. FINDINGS: Liver: Normal in size, 13.8 cm. Diffusely hyperechoic with decreased posterior acoustic penetration consistent with fatty infiltration. 1.9 x 1.8 x 2.2 cm simple cyst in the left hepatic lobe superiorly. Main portal vein flow: Hepatopetal. Gallbladder: Normal. No stones, wall thickening, or sonographic Feliciano's sign. Biliary System: CBD measures 4 mm. No intrahepatic or extrahepatic ductal dilatation. Other: Right kidney is unremarkable. IMPRESSION: 1. Hepatic steatosis. 2. No findings to explain right upper quadrant pain. RADIA
[2018-01-31 15:41] LABS: BILIRUBIN,URINE NEGATIVE (NEGATIVE); CLARITY,URINE CLEAR (CLEAR); GLUCOSE, URINE (UA) NEGATIVE (NEGATIVE); KETONES,URINE (UA) 15 mg/dL (NEGATIVE); LEUKOCYTE ESTERASE, URINE NEGATIVE (NEGATIVE); NITRITE,URINE NEGATIVE (NEGATIVE); OCCULT BLOOD,URINE TRACE-LYSE (NEGATIVE); PROTEIN,URINE NEGATIVE (NEGATIVE); UROBILINOGEN,URINE 0.2 (NORMAL) E.U./dL (NORMAL)
[2018-01-31 16:05] VITALS: BP 139/97
== END 2018-01-31 16:03 | disposition home or self-care (01) ==
LOC: ED 12:49
DX: M54.5 Low back pain (principal); R10.811 Right upper quadrant abdominal tenderness; I10 Essential (primary) hypertension
CPT/HCPCS: 36415; 76705; 80053; 81003; 83690; 85025; 96374; 99283; J1170; 81001; 87086

== ENCOUNTER 2018-03-01 13:28 | Emergency (ER) | payer OTHER ==
[2018-03-01] MEDS ORDERED: HYDROmorphone 1 MG/ML CARPUJECT IM STA (16:30)
--- NOTE | 2018-03-01 16:32 | ED Physician Documentation ---
PD HPI BACK INJURY - Stated complaint Stated Complaint: BACK PX - History obtained from History obtained from: Patient - History of Present Illness Location: Lower (Couple of days ago she was helping someone stand up and she felt a pop in the left low back and has severe pain there which radiates down to the thigh without weakness, numbness, or tingling. She also hurt the right medial foot at the same time but is not having any trouble walking. 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 Psych: Depression Musculoskeletal: Fibromyalgia, Other - Past Surgical History Past Surgical History: Yes - Present Medications Home Medications: Ambulatory Orders Medication Instructions Recorded Confirmed Escitalopram [Lexapro] 10 mg ORAL DAILY 11/03/15 06/26/17 Mometasone Furoate [Nasonex] 1 spray NS BID #1 spray.pump 05/17/17 06/26/17 Clindamycin HCl [Clindamycin 300MG 300 mg PO Q6H #40 capsule 06/26/17 CAP] Hydrocodone/Acetaminophen 1 - 2 each PO Q6H PRN #14 tablet 06/26/17 [Hydrocodon-Acetaminophen 5-325] amLODIPine [Norvasc] 1 tab PO DAILY 06/26/17 06/26/17 predniSONE [Prednisone] 40 mg PO DAILY #10 tablet 06/26/17 Clindamycin [Cleocin] 300 mg PO Q6H 10 Days capsule 09/28/17 HYDROcod/ACETAM 5/325 [[place] 5/325] 1 - 2 ea PO Q6H PRN #15 tablet 09/28/17 predniSONE [Deltasone] 20 mg PO [id number] #21 tab 09/28/17 Cyclobenzaprine [Flexeril] 10 mg PO TID PRN #20 tablet 01/31/18 HYDROcod/ACETAM 5/325 [[place] 5/325] 1 - 2 ea PO Q6H PRN #15 tablet 01/31/18 Hydrocodone/Acetaminophen 1 - 2 each PO Q6H PRN #14 tablet 03/01/18 [Hydrocodon-Acetaminophen 5-325] - Allergies Allergies/Adverse Reactions: Allergies Allergy/AdvReac Type Severity Reaction Status Date / Time No Known Drug Allergies Allergy Verified 03/01/18 13:47 - Social History Does the pt smoke?: No Smoking Status: Never smoker Does the pt drink ETOH?: No Does the pt have substance abuse?: No - Immunizations Immunizations are current?: Yes - POLST Patient has POLST: No PD ED PE NORMAL - Vitals Vital signs reviewed: Yes - General General: Alert and oriented X 3, Other (Uncomfortable, sitting with her weight focused on the right buttock instead of the left.) - Abdomen Abdomen: Soft, Non tender - Back Back: No spinal TTP, Other (The patient has equal and normal Achilles and patellar reflexes bilaterally. Normal sensation in all areas of the legs. Patient denies saddle anesthesia. Normal strength in flexion-extension at the ankles, knees, and flexion of the hips.) - Extremities Extremities: Other (Mild tenderness over the medial proximal forefoot on the right without deformity.) - Neuro Neuro: Alert and oriented X 3 Results - Vitals Vitals: Vital Signs - 24 hr 03/01/18 03/01/18 13:44 17:33 Temperature 36.7 C 37.1 C Heart Rate 103 H 97 Respiratory 18 18 Rate Blood Pressure 131/81 H 140/86 H O2 Saturation 97 100 Oxygen O2 Source Room air - Rads (name of study) 3v R foot Radiology: EMP read contemporaneously (NAD) PD MEDICAL DECISION MAKING - Sepsis Event Vital Signs: Vital Signs - 24 hr 03/01/18 03/01/18 13:44 17:33 Temperature 36.7 C 37.1 C Heart Rate 103 H 97 Respiratory 18 18 Rate Blood Pressure 131/81 H 140/86 H O2 Saturation 97 100 Oxygen O2 Source Room air Departure - Departure Disposition: 01 Home, Self Care Clinical Impression: Acute low back pain Contusion of right foot Qualifiers: Encounter type: initial encounter Qualified Code(s): S90.31XA - Contusion of right foot, initial encounter Condition: Good Record reviewed to determine appropriate education?: Yes Instructions: ED Sciatica Prescriptions: Hydrocodone/Acetaminophen [Hydrocodon-Acetaminophen 5-325] 1 - 2 each PO Q6H PRN #14 tablet PRN Reason: pain Comments: Call your doctor to arrange a follow-up appointment, make the next available appointment. In the interim, return anytime if worse or if new symptoms develop. Your blood pressure was elevated today on check into the emergency department. This does not mean that you have hypertension, it is a common phenomenon to come to the emergency department and have elevated blood pressure. I recommend that you see your primary care physician within the week to have it rechecked when you are feeling better. Do not drink or drive while taking narcotic pain medication. Note that many narcotic pain relievers also contain Tylenol/acetaminophen. Please ensure that your total dose of acetaminophen from all sources does not exceed 3 g (3000 mg) per day. You may get constipated while on this medication. Take a stool softener such as Colace twice a day while you are on it. Also add an [id number]-dbn-bzbvqzz laxative such as senna or MiraLAX on any day that you do not have a bowel movement. If you received a narcotic pain medication or sedative while in the emergency department, do not drive for the next 24 hours.
[2018-03-01 17:34] VITALS: BP 140/86
--- NOTE | 2018-03-01 17:50 | XRAY Report ---
Reason: RIGHT FOOT INJURY Procedure Date: 03/01/2018 Accession Number: [id number] / [id number] Procedure: XR - Foot 3 View RT CPT Code: FULL RESULT: EXAM: RIGHT FOOT RADIOGRAPHY EXAM DATE: 03/01/2018 04:39 PM. CLINICAL HISTORY: RIGHT FOOT INJURY. COMPARISON: FOOT 3 VIEW LT 11/23/2015 12:56 AM. TECHNIQUE: 3 views. FINDINGS: Bones: Normal. No fractures or bone lesions. Joints: Normal. No subluxations. Soft Tissues: Normal. No soft tissue swelling. IMPRESSION: No fracture or subluxation. RADIA
== END 2018-03-01 17:59 | disposition home or self-care (01) ==
LOC: ED 13:28
DX: M54.5 Low back pain (principal); S90.31XA Contusion of right foot, initial encounter; X50.0XXA Overexertion from strenuous movement or load, initial encounter; Y93.F2 Activity, caregiving, lifting; I10 Essential (primary) hypertension
CPT/HCPCS: 73630; 96372; 99283; J1170

== ENCOUNTER 2018-04-16 13:18 | Emergency (ER) | payer OTHER ==
--- NOTE | 2018-04-16 14:47 | ED Physician Documentation ---
PD HPI BACK PAIN - Stated complaint Stated Complaint: BACK PX - Chief complaint Chief Complaint: Back Pain - History obtained from History obtained from: Patient - History of Present Illness Timing - onset: Yesterday (no noted injury but does have to baf) Timing - duration: Hours Timing - details: Gradual onset, Still present Location: Lower, Right Associated symptoms: No: Fever, Weakness, Numbness, Incontinent of urine, Hematuria Worsened by: Movement Contributing factors: Twisting Similar symptoms before: Diagnosis (disc disease lower back.) Recently seen: Not recently seen Review of Systems Constitutional: denies: Fever, Chills, Myalgias Nose: denies: Rhinorrhea / runny nose, Congestion Throat: denies: Sore throat Cardiac: denies: Chest pain / pressure GI: denies: Abdominal Pain, Nausea, Vomiting Musculoskeletal: reports: Back pain (chronic with occasional exagerations.). 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 Psych: Depression Musculoskeletal: Fibromyalgia, Chronic back pain, Other - Past Surgical History Past Surgical History: Yes - Present Medications Home Medications: Ambulatory Orders Medication Instructions Recorded Confirmed Escitalopram [Lexapro] 10 mg ORAL DAILY 11/03/15 06/26/17 Mometasone Furoate [Nasonex] 1 spray NS BID #1 spray.pump 05/17/17 06/26/17 Clindamycin HCl [Clindamycin 300MG 300 mg PO Q6H #40 capsule 06/26/17 CAP] Hydrocodone/Acetaminophen 1 - 2 each PO Q6H PRN #14 tablet 06/26/17 [Hydrocodon-Acetaminophen 5-325] amLODIPine [Norvasc] 1 tab PO DAILY 06/26/17 06/26/17 predniSONE [Prednisone] 40 mg PO DAILY #10 tablet 06/26/17 Clindamycin [Cleocin] 300 mg PO Q6H 10 Days capsule 09/28/17 HYDROcod/ACETAM 5/325 [[place] 5/325] 1 - 2 ea PO Q6H PRN #15 tablet 09/28/17 predniSONE [Deltasone] 20 mg PO [id number] #21 tab 09/28/17 Cyclobenzaprine [Flexeril] 10 mg PO TID PRN #20 tablet 01/31/18 HYDROcod/ACETAM 5/325 [[place] 5/325] 1 - 2 ea PO Q6H PRN #15 tablet 01/31/18 Hydrocodone/Acetaminophen 1 - 2 each PO Q6H PRN #14 tablet 03/01/18 [Hydrocodon-Acetaminophen 5-325] Dexamethasone [Decadron] 4 mg PO DAILY #5 tablet 04/16/18 HYDROcod/ACETAM 5/325 [[place] 5/325] 1 tab PO Q6H PRN #25 tablet 04/16/18 Methocarbamol [Robaxin] 500 mg PO Q6H PRN #25 tablet 04/16/18 - Allergies Allergies/Adverse Reactions: Allergies Allergy/AdvReac Type Severity Reaction Status Date / Time No Known Drug Allergies Allergy Verified 04/16/18 13:43 - Social History Does the pt smoke?: No Smoking Status: Never smoker Does the pt drink ETOH?: No Does the pt have substance abuse?: No - Immunizations Immunizations are current?: Yes - POLST Patient has POLST: No PD ED PE NORMAL - Vitals Vital signs reviewed: Yes - General General: Alert and oriented X 3, Well developed/nourished, Other (appears uncomfortable and guarding movement of the back. ) - Cardiac Cardiac: RRR, No murmur, Strong equal pulses - Respiratory Respiratory: No respiratory distress, Clear bilaterally - Abdomen Abdomen: Soft, Non tender - Female Female : Deferred, Senior Support Engineer present - Rectal Rectal: Deferred, Pt declined Results - Vitals Vitals: Oxygen O2 Source Room air Departure - Departure Disposition: 01 Home, Self Care Clinical Impression: Acute exacerbation of chronic low back pain Condition: Stable Record reviewed to determine appropriate education?: Yes Instructions: ED Low Back Pain Injury Follow-Up: MURALI AZEVEDO [Primary Care Provider] - Prescriptions: Dexamethasone [Decadron] 4 mg PO DAILY #5 tablet HYDROcod/ACETAM 5/325 [[place] 5/325] 1 tab PO Q6H PRN #25 tablet PRN Reason: Pain Methocarbamol [Robaxin] 500 mg PO Q6H PRN #25 tablet PRN Reason: Spasms Comments: Heat and gentle range of motion. Use some ibuprofen or naproxen twice daily. Add hydrocodone if needed for pain. Methocarbamol as needed for spasms. Decadron daily for the inflammation for 5 days. Follow-up with your primary care regarding other treatments such as potential physical therapy. Discharge Date/Time: 04/16/18 16:19
[2018-04-16] MEDS ORDERED: diazePAM 5 MG TABLET PO STA (15:07)
[2018-04-16] MEDS ORDERED: HYDROmorphone 1 MG/ML CARPUJECT IM STA (15:07)
[2018-04-16] MEDS ORDERED: DEXAMETHASONE 10 MG/ML VIAL PO STA (15:07)
[2018-04-16 16:19] VITALS: BP 130/74
== END 2018-04-16 16:19 | disposition home or self-care (01) ==
LOC: ED 13:18
DX: G89.29 Other chronic pain (principal); M54.5 Low back pain; I10 Essential (primary) hypertension
CPT/HCPCS: 96372; 99283; A9270; J1170

== ENCOUNTER 2018-04-21 12:27 | Emergency (ER) | payer OTHER ==
--- NOTE | 2018-04-21 12:53 | ED Physician Documentation ---
PD HPI BACK PAIN - Stated complaint Stated Complaint: BACK PX - Chief complaint Chief Complaint: Back Pain - History obtained from History obtained from: Patient - History of Present Illness Timing - onset: How many weeks ago (She has been having ongoing and recurrent low back pain. She had been seen by your provider recently and is scheduled for an MRI of the back this coming week. She has been treated with episodic pain medication and ongoing muscle relaxants. She was here several days ago for pain exacerbation and prescribed hydrocodone. She states she developed hives and rash and nausea subsequent to taking it. She took the muscle relaxant without the pain medicine did not have any hives. She had taken hydrocodone in the past without any similar symptoms.) Timing - duration: Weeks Timing - details: Waxing and waning Location: Lower Quality: Pain, Spasm Associated symptoms: No: Fever, Weakness, Numbness, Incontinent of urine Worsened by: Movement Contributing factors: Twisting. No: Trauma Similar symptoms before: Work up / diagnostics (has had meds and PT; scheduled for MRI this coming week.) Recently seen: Emergency Dept Review of Systems Constitutional: denies: Fever, Chills, Myalgias Nose: denies: Rhinorrhea / runny nose, Congestion Throat: denies: Sore throat Cardiac: denies: Chest pain / pressure Respiratory: denies: Dyspnea, Cough GI: reports: Nausea, Vomiting (due to allergy to meds few days ago. 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 Psych: Depression Musculoskeletal: Fibromyalgia, Chronic back pain, Other - Past Surgical History Past Surgical History: Yes - Present Medications Home Medications: Ambulatory Orders Medication Instructions Recorded Confirmed Escitalopram [Lexapro] 10 mg ORAL DAILY 11/03/15 06/26/17 Dexamethasone [Decadron] 4 mg PO DAILY #5 tablet 04/16/18 Methocarbamol [Robaxin] 500 mg PO Q6H PRN #25 tablet 04/16/18 Cyclobenzaprine [Flexeril] 10 mg PO TID PRN #30 tablet 04/21/18 Dexamethasone [Decadron] 4 mg PO DAILY #5 tablet 04/21/18 Meloxicam [Mobic] 7.5 mg PO DAILY 04/21/18 04/21/18 Ondansetron HCl [Zofran] 4 mg PO Q6H PRN #15 tablet 04/21/18 Oxycodone HCl/Acetaminophen 1 each PO Q6H PRN #25 tablet 04/21/18 [Percocet 5-325 mg Tablet] amLODIPine [Norvasc] 10 mg PO DAILY 04/21/18 04/21/18 - Allergies Allergies/Adverse Reactions: Allergies Allergy/AdvReac Type Severity Reaction Status Date / Time acetaminophen [From Vicodin] AdvReac Rash Verified 04/21/18 12:49 hydrocodone [From Vicodin] AdvReac Rash Verified 04/21/18 12:49 - Social History Does the pt smoke?: No Smoking Status: Never smoker Does the pt drink ETOH?: No Does the pt have substance abuse?: No - Immunizations Immunizations are current?: Yes - POLST Patient has POLST: No PD ED PE NORMAL - Vitals Vital signs reviewed: Yes - General General: Alert and oriented X 3, Well developed/nourished, Other (appears in pain. Standing by counter, says sitting/bending hurts more. ) - Neck Neck: Supple, no meningeal sign, No adenopathy - Cardiac Cardiac: RRR, No murmur - Respiratory Respiratory: Clear bilaterally - Abdomen Abdomen: Soft, Non tender - Back Back: Other (Low fly frame tender) - Derm Derm: Normal color, Warm and dry, No rash - Neuro Neuro: Alert and oriented X 3, No motor deficit, No sensory deficit, Normal speech Results - Vitals Vitals: Vital Signs - 24 hr 04/21/18 13:46 Heart Rate 101 H Respiratory 16 Rate Blood Pressure 136/93 H O2 Saturation 99 Oxygen O2 Source Room air PD MEDICAL DECISION MAKING - ED course Complexity details: reviewed old records, re-evaluated patient (more comfortable after pain meds. Not nauseated now. ), considered differential, d/w patient Departure - Departure Disposition: 01 Home, Self Care Clinical Impression: Acute exacerbation of chronic low back pain, Allergy to pain medication Condition: Stable Record reviewed to determine appropriate education?: Yes Instructions: ED Sciatica Follow-Up: MURALI AZEVEDO [Primary Care Provider] - Prescriptions: Cyclobenzaprine [Flexeril] 10 mg PO TID PRN #30 tablet PRN Reason: Spasms Dexamethasone [Decadron] 4 mg PO DAILY #5 tablet Ondansetron HCl [Zofran] 4 mg PO Q6H PRN #15 tablet PRN Reason: Nausea / Vomiting Oxycodone HCl/Acetaminophen [Percocet 5-325 mg Tablet] 1 each PO Q6H PRN #25 tablet PRN Reason: Pain Comments: I would extend the Decadron anti-inflammatory for several more days. Continue muscle relaxants and we can change to Flexeril instead to see if it works a little bit better. Change to Percocet pain medicine since he developed hives to the hydrocodone. Ondansetron if needed for nausea. Follow-up with your primary care this week and have the MRI as planned. Discharge Date/Time: 04/21/18 13:48
[2018-04-21] MEDS ORDERED: HYDROmorphone 1 MG/ML CARPUJECT IM STA (13:08)
[2018-04-21] MEDS ORDERED: KETOROLAC 30 MG/ML VIAL IM STA (13:08)
[2018-04-21] MEDS ORDERED: METHOCARBAMOL 500 MG TABLET PO STA (13:08)
[2018-04-21] MEDS ORDERED: ONDANSETRON ODT 4 MG TABLET TL STA (13:34)
[2018-04-21 13:46] VITALS: BP 136/93
== END 2018-04-21 13:48 | disposition home or self-care (01) ==
LOC: ED 12:27
DX: M54.5 Low back pain (principal); T40.2X5A Adverse effect of other opioids, initial encounter; R21 Rash and other nonspecific skin eruption; R11.2 Nausea with vomiting, unspecified; I10 Essential (primary) hypertension
CPT/HCPCS: 96372; 99283; A9270; J1170; Q0162

== ENCOUNTER 2018-05-22 13:38 | Outpatient (CLI) | payer OTHER ==
--- NOTE | 2018-05-23 08:15 | MRI Report ---
Reason: RADICULOPATHY, LUMBAR REGION Procedure Date: 05/22/2018 Accession Number: [id number] / [id number] Procedure: MRI - Lumbar Spine W/O CPT Code: FULL RESULT: EXAM: MRI LUMBAR SPINE WITHOUT CONTRAST EXAM DATE: 05/22/2018 02:18 PM. CLINICAL HISTORY: RADICULOPATHY, LUMBAR REGION. COMPARISON: None. TECHNIQUE: Multiplanar, multisequence T1-weighted and fluid-sensitive sequences of the lumbar spine from T12 to S1 without contrast. Other: None. FINDINGS: Lumbar alignment is anatomic. Vertebral body height is preserved. There is no fracture. Marrow signal is normal. The conus is normal in contour with the tip at the level of the L1 vertebra. Axial images demonstrate the following: T12-L1: No central or foraminal stenosis. L1-L2: No central or foraminal stenosis. L2-L3: Broad-based anterior disk protrusion. No posterior disk bulge or herniation. No central or foraminal stenosis. L3-L4: Trace disk bulge. No central or foraminal stenosis. L4-L5: Mild bilateral facet arthropathy. Normal intervertebral disk. No central or foraminal stenosis. L5-S1: Trace disk bulge eccentric to the left. No central or foraminal stenosis. IMPRESSION: Mild multilevel degenerative disk and facet disease. No central or foraminal stenosis at any lumbar level. No findings to explain radicular symptoms. Comment: The following findings are so common in adults without low back pain that while we report their presence, they must be interpreted with caution and in the context of the clinical situation. (Reference Lizavik et al, Spine 2001) Prevalence of findings in patients without low back pain: Disk degeneration (any evidence): 92% Disk desiccation/T2 signal loss: 83% Disk height loss: 56% Disk bulge: 64% Disk protrusion: 32% Annular tear/high intensity zone: 38% RADIA
== END 2018-05-22 13:39 | disposition home or self-care (01) ==
LOC: DI 13:38
DX: M51.16 Intervertebral disc disorders with radiculopathy, lumbar region (principal)
CPT/HCPCS: 72148

== ENCOUNTER 2018-07-13 10:05 | Emergency (ER) | payer OTHER ==
[2018-07-13] MEDS ORDERED: DEXAMETHASONE 10 MG/ML VIAL PO STA (11:10)
[2018-07-13] MEDS ORDERED: KETOROLAC 60 MG/2 ML VIAL IM STA (11:11)
--- NOTE | 2018-07-13 11:13 | ED Physician Documentation ---
PD HPI BACK PAIN - Stated complaint Stated Complaint: BACK PX - Chief complaint Chief Complaint: Back Pain - History obtained from History obtained from: Patient - History of Present Illness Timing - onset: How many days ago (3) Timing - duration: Days (3) Timing - details: Gradual onset, Still present Location: Mid, Lower, Left Quality: Pain, Spasm, Sharp, Similar to prior episodes Associated symptoms: No: Fever, Weakness, Numbness, Incontinent of urine, Unable to urinate, Hematuria, Incontinent of stool Improves with: Rest, Position Worsened by: Movement, Palpation Contributing factors: Other (cough) Similar symptoms before: Diagnosis (lumbar spasm) Recently seen: Other (routine visit last month) - Additional information Additional information: 57-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 She has developed a cough over the past week and her back pain is significantly worse than usual. She is been sleeping on a heating pack and she is very stiff. Denies any numbness or tingling denies any perineal anesthesia. Review of Systems Constitutional: denies: Fever, Chills, Myalgias Eyes: denies: Decreased vision Ears: denies: Ear pain Nose: reports: Congestion. denies: Rhinorrhea / runny nose Throat: denies: Sore throat Cardiac: denies: Chest pain / pressure, Palpitations Respiratory: reports: Cough. denies: Dyspnea GI: denies: Abdominal Pain, Nausea, Vomiting : denies: Dysuria, Frequency Skin: denies: Rash Musculoskeletal: reports: Back pain. 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 Psych: Depression Musculoskeletal: Fibromyalgia, Chronic back pain, Other - Past Surgical History Past Surgical History: Yes - Present Medications Home Medications: Ambulatory Orders Medication Instructions Recorded Confirmed Escitalopram [Lexapro] 10 mg ORAL DAILY 11/03/15 07/13/18 amLODIPine [Norvasc] 10 mg PO DAILY 04/21/18 07/13/18 Amox/Clav 875/125 [Augmentin] 1 each PO Q12H #20 tablet 07/13/18 Celecoxib [CeleBREX] 100 mg PO BID 07/13/18 07/13/18 Cyclobenzaprine [Flexeril] 10 mg PO TID PRN #20 tablet 07/13/18 Hydrocodone/Acetaminophen 1 - 2 each PO Q6H PRN #14 tablet 07/13/18 [Hydrocodon-Acetaminophen 5-325] - Allergies Allergies/Adverse Reactions: Allergies Allergy/AdvReac Type Severity Reaction Status Date / Time acetaminophen [From Vicodin] AdvReac Rash Unverified 07/13/18 10:11 hydrocodone [From Vicodin] AdvReac Rash Unverified 07/13/18 10:11 - Social History Does the pt smoke?: No Smoking Status: Never smoker Does the pt drink ETOH?: No Does the pt have substance abuse?: No - Immunizations Immunizations are current?: Yes - POLST Patient has POLST: No PD ED PE NORMAL - Vitals Vital signs reviewed: Yes (hypertensive ) - General General: Alert and oriented X 3, Well developed/nourished, Other (The patient is splinting on the chair holding her right buttocks off of the chair. ) - HEENT HEENT: Atraumatic, PERRL, EOMI, Moist mucous membranes, Pharynx benign, Other (Right TM is inflamed along the rounded umbo and the left is much less involved. ) - Neck Neck: Supple, no meningeal sign, No bony TTP, No JVD - Respiratory Respiratory: No respiratory distress, Clear bilaterally - Abdomen Abdomen: Soft, Non tender - Back Back: No CVA TTP, Other (There is paraspinous muscle tenderness to the mid lumbar paraspinous muscles) - Derm Derm: Normal color, Warm and dry, No rash - Extremities Extremities: No deformity, No edema - Neuro Neuro: Alert and oriented X 3, probation agent 2-12 intact, No motor deficit, No sensory deficit, Normal speech Eye Opening: Spontaneous Motor: Obeys Commands Verbal: Oriented GCS Score: 15 - Psych Psych: Normal mood, Normal affect Results - Vitals Vitals: Vital Signs - 24 hr 07/13/18 10:08 Temperature 36.1 C L Heart Rate 95 Respiratory 20 Rate Blood Pressure 147/101 H O2 Saturation 97 Oxygen O2 Source Room air PD MEDICAL DECISION MAKING - ED course Complexity details: considered differential, d/w patient ED course: 57-year-old female with chronic lumbar spasm has been sleeping on a heating pack and her spasm is worse with a cough. Her cough appears to be related to otitis media and she does not have lumbar disc disease on her recent lumbar MRI. She is administered dexamethasone 10 mg orally and we will place her on some hydrocodone and Flexeril as well as antibiotic. Departure - Departure Disposition: 01 Home, Self Care Clinical Impression: Lumbar paraspinal muscle spasm Otitis media Qualifiers: Otitis media type: suppurative Chronicity: acute Laterality: bilateral Recurrence: not specified as recurrent Spontaneous tympanic membrane rupture: without spontaneous rupture Qualified Code(s): H66.003 - Acute suppurative otitis media without spontaneous rupture of ear drum, bilateral Condition: Stable Instructions: ED Otitis Media Acute Adult, ED Spasm Back No Trauma Follow-Up: MURALI AZEVEDO [Primary Care Provider] - Prescriptions: Amox/Clav 875/125 [Augmentin] 1 each PO Q12H #20 tablet Cyclobenzaprine [Flexeril] 10 mg PO TID PRN #20 tablet PRN Reason: Spasms Hydrocodone/Acetaminophen [Hydrocodon-Acetaminophen 5-325] 1 - 2 each PO Q6H PRN #14 tablet PRN Reason: pain
[2018-07-13 11:41] VITALS: BP 122/83
== END 2018-07-13 11:44 | disposition home or self-care (01) ==
LOC: ED 10:05
DX: H66.003 Acute suppurative otitis media without spontaneous rupture of ear drum, bilateral (principal); I10 Essential (primary) hypertension; G89.29 Other chronic pain
CPT/HCPCS: 96372; 99283

== ENCOUNTER 2018-08-09 10:10 | Emergency (ER) | payer OTHER ==
[2018-08-09 10:18] VITALS: BP 126/89
[2018-08-09] MEDS ORDERED: KETOROLAC 60 MG/2 ML VIAL IM STA (11:40)
[2018-08-09] MEDS ORDERED: DEXAMETHASONE 10 MG/ML VIAL PO STA (11:41)
--- NOTE | 2018-08-09 11:46 | ED Physician Documentation ---
PD HPI BACK PAIN - Stated complaint Stated Complaint: BACK PX - Chief complaint Chief Complaint: Back Pain - History obtained from History obtained from: Patient - History of Present Illness Timing - onset: Chronic Timing - duration: Days (worse for 3 days) Timing - details: Gradual onset Pain level max: 8 Pain level now: 8 Location: Lower, Right, Left Quality: Pain, Spasm, Similar to prior episodes Associated symptoms: No: Fever, Weakness, Numbness, Incontinent of urine, Unable to urinate, Hematuria, Incontinent of stool Improves with: Rest Worsened by: Movement, Lifting Review of Systems Constitutional: denies: Fever, Chills GI: denies: Vomiting : denies: Incontinent Skin: denies: Rash Musculoskeletal: denies: Neck pain Neurologic: denies: Focal weakness, Numbness PD PAST MEDICAL HISTORY - Past Medical History Cardiovascular: None, Hypertension Respiratory: None Endocrine/Autoimmune: None GI: None 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 Psych: Depression Musculoskeletal: Fibromyalgia, Chronic back pain, Other - Past Surgical History Past Surgical History: Yes - Present Medications Home Medications: Ambulatory Orders Medication Instructions Recorded Confirmed Escitalopram [Lexapro] 10 mg ORAL DAILY 11/03/15 08/09/18 amLODIPine [Norvasc] 10 mg PO DAILY 04/21/18 08/09/18 Amox/Clav 875/125 [Augmentin] 1 each PO Q12H #20 tablet 07/13/18 Cyclobenzaprine [Flexeril] 10 mg PO TID PRN #20 tablet 08/09/18 Hydrocodone/Acetaminophen 1 - 2 each PO Q6H PRN #14 tablet 08/09/18 [Hydrocodon-Acetaminophen 5-325] Methocarbamol [Robaxin] 500 mg PO Q6H 08/09/18 08/09/18 - Allergies Allergies/Adverse Reactions: Allergies Allergy/AdvReac Type Severity Reaction Status Date / Time No Known Drug Allergies Allergy Verified 08/09/18 10:18 - Social History Does the pt smoke?: No Smoking Status: Never smoker Does the pt drink ETOH?: No Does the pt have substance abuse?: No - Immunizations Immunizations are current?: Yes - POLST Patient has POLST: No PD ED PE NORMAL - Vitals Vital signs reviewed: Yes - General General: Alert and oriented X 3, No acute distress - HEENT HEENT: Moist mucous membranes - Neck Neck: Supple, no meningeal sign, No bony TTP - Cardiac Cardiac: RRR - Respiratory Respiratory: No respiratory distress, Clear bilaterally - Abdomen Abdomen: Soft, Non tender, Non distended - Back Back: No spinal TTP (No midline tenderness to palpation or percussion. There is paraspinal spasm present) - Derm Derm: Warm and dry - Extremities Extremities: Other (Normal bilateral lower extremity patellar and ankle jerk reflexes. Normal great toe extension bilaterally. no saddle anesthesia) - Neuro Neuro: Alert and oriented X 3, No motor deficit, No sensory deficit Results - Vitals Vitals: Vital Signs - 24 hr 08/09/18 10:16 Temperature 37.1 C Heart Rate 73 Respiratory 20 Rate Blood Pressure 126/89 H O2 Saturation 97 Oxygen O2 Source Room air PD MEDICAL DECISION MAKING - ED course Complexity details: considered differential (No cauda equina, no spinal epidural abscess, no fracture, no aortic dissection or evidence of aneursym rupture), d/w patient ED course: 57-year-old female with chronic back pain. Will prescribe muscle relaxants and pain medication for home. Counseled that she needs to follow-up with her doctor as this is her 17th emergency department visit in the last 12 months to various emergency departments. She will likely need to be referred to pain management or a acute specialist for her back. Patient counseled regarding signs and symptoms for which I believe and urgent re-evaluation would be necessary. Patient with good understanding of and agreement to plan and is comfortable going home at this time This document was made in part using voice recognition software. While efforts are made to proofread this document, sound alike and grammatical errors may occur. Departure - Departure Disposition: 01 Home, Self Care Clinical Impression: Lumbar paraspinal muscle spasm Condition: Good Instructions: ED Spasm Back No Trauma Follow-Up: MURALI AZEVEDO [Primary Care Provider] - Within 1 week Prescriptions: Cyclobenzaprine [Flexeril] 10 mg PO TID PRN #20 tablet PRN Reason: Spasms Hydrocodone/Acetaminophen [Hydrocodon-Acetaminophen 5-325] 1 - 2 each PO Q6H PRN #14 tablet PRN Reason: pain Comments: Return if you worsen. Use the medications as prescribed. you should follow-up with your doctor for referral to pain management or to discuss having breakthrough medications for home. Do not drink alcohol or drive while on narcotic pain medicine. Note that many narcotic pain relievers also contain tylenol/acetaminophen. Please ensure that your total dose of acetaminophen from all sources does not exceed 3 grams (3000mg) per day. You may constipated on this medication, take a stool softener such as "Colace" twice a day while you are on it. Also recommend a bubb-dem-mopbots laxative such as senna or MiraLAX any day that you do not have a bowel movement. If you received narcotic pain medication in the emergency department, do not drive or operate machinery for the next 24 hours. Discharge Date/Time: 08/09/18 11:58
[2018-08-09] MEDS ORDERED: CHERRY SYRUP 10 ML UDC PO ONE (11:48)
== END 2018-08-09 11:58 | disposition home or self-care (01) ==
LOC: ED 10:10
DX: M62.830 Muscle spasm of back (principal); G89.29 Other chronic pain; I10 Essential (primary) hypertension
CPT/HCPCS: 96372; 99283; A9270

== ENCOUNTER 2018-10-02 11:27 | Emergency (ER) | payer OTHER ==
--- NOTE | 2018-10-02 12:22 | ED Physician Documentation ---
PD HPI BACK PAIN - Stated complaint Stated Complaint: BACK PAIN - Chief complaint Chief Complaint: Back Pain - History obtained from History obtained from: Patient - History of Present Illness Timing - onset: Other (This is a 57-year-old woman with chronic low back pain. It flared a few weeks ago after a near fall in a jarring of her back. She was seen at another facility and x-rayed which per her was negative. Since then she has had left-sided low back pain radiating into the left hip but no further. She denies weakness, numbness, tingling, saddle anesthesia or fevers. Of note this is her 17th emergency department visit in the last 12 months, she is received narcotics on most of those visits totaling 12 schedule II narcotics and 172 quantity from 10 unique prescribers. This is her seventh emergency department visit here in the last 12 months, she is also had 7 the ezel and 3 to a couple of other facilities. 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 Psych: Depression Musculoskeletal: Fibromyalgia, Chronic back pain, Other - Past Surgical History Past Surgical History: Yes - Present Medications Home Medications: Ambulatory Orders Medication Instructions Recorded Confirmed Escitalopram [Lexapro] 10 mg ORAL DAILY 11/03/15 08/09/18 amLODIPine [Norvasc] 10 mg PO DAILY 04/21/18 08/09/18 Amox/Clav 875/125 [Augmentin] 1 each PO Q12H #20 tablet 07/13/18 Cyclobenzaprine [Flexeril] 10 mg PO TID PRN #20 tablet 08/09/18 Hydrocodone/Acetaminophen 1 - 2 each PO Q6H PRN #14 tablet 08/09/18 [Hydrocodon-Acetaminophen 5-325] Methocarbamol [Robaxin] 500 mg PO Q6H 08/09/18 08/09/18 Ibuprofen [Motrin] 800 mg PO Q8H PRN #30 tablet 10/02/18 - Allergies Allergies/Adverse Reactions: Allergies Allergy/AdvReac Type Severity Reaction Status Date / Time No Known Drug Allergies Allergy Verified 10/02/18 11:40 - Social History Does the pt smoke?: No Smoking Status: Never smoker Does the pt drink ETOH?: No Does the pt have substance abuse?: No - Immunizations Immunizations are current?: Yes - POLST Patient has POLST: No PD ED PE NORMAL - Vitals Vital signs reviewed: Yes - General General: Alert and oriented X 3, No acute distress - Abdomen Abdomen: Non tender - Back Back: No spinal TTP, Other (The patient has equal and normal Achilles and patellar reflexes bilaterally. Normal sensation in all areas of the legs. Patient denies saddle anesthesia. Normal strength in flexion-extension at the ankles, knees, and flexion of the hips.) - Neuro Neuro: Alert and oriented X 3, Normal speech Results - Vitals Vitals: Vital Signs - 24 hr 10/02/18 11:39 Temperature 36 C L Heart Rate 97 Respiratory 22 Rate Blood Pressure 134/89 H O2 Saturation 97 Oxygen O2 Source Room air PD MEDICAL DECISION MAKING - ED course ED course: This patient has seemingly uncomplicated musculoskeletal back pain. The patient has no "red flags." Specifically denies IV drug use, fevers, incontinence, saddle anesthesia. Spinal epidural abscess was considered, given that the patient has no fever, is not diabetic, has no spinal tenderness, does not use IV drugs, and has no bilateral neurologic symptoms, the diagnosis of spinal epidural abscess is considered exceedingly unlikely. She does have chronic pain now, and frequent emergency department use and frequent prescriptions for narcotics from a variety of prescribers. In the last 4 or 5 months she is already had greater than 3 narcotic prescriptions from this emergency department. Discussed with her our policies and the need for more chronic pain management as opposed to intermittent emergency department use. She was administered Toradol and Decadron here and a prescription for Motrin. She was notified that further narcotic prescriptions for exacerbations of chronic back pain would not be forthcoming from the emergency department. Departure - Departure Disposition: 01 Home, Self Care Clinical Impression: Chronic low back pain Qualifiers: Back pain laterality: left Sciatica presence: without sciatica Qualified Code(s): M54.5 - Low back pain Condition: Good Record reviewed to determine appropriate education?: Yes Instructions: ED Chronic Pain Management Prescriptions: Ibuprofen [Motrin] 800 mg PO Q8H PRN #30 tablet PRN Reason: PAIN &/OR FEVER Comments: The policy of this emergency department is to not give more than 3 prescriptions for narcotics or other controlled substances in any 1 year. You have already surpassed this benchmark and we cannot prescribe narcotics for you. I encourage you to follow up with your primary care physician or to establish care with a primary care physician for ongoing pain management. You are always welcome to seek emergency care here for this or new issues but there will likely be limitations in the prescription of narcotic pain medication.
[2018-10-02] MEDS ORDERED: CHERRY SYRUP 10 ML UDC PO ONE (12:23)
[2018-10-02] MEDS ORDERED: KETOROLAC 60 MG/2 ML VIAL IM STA (12:23)
[2018-10-02] MEDS ORDERED: DEXAMETHASONE 10 MG/ML VIAL PO STA (12:23)
[2018-10-02 12:37] VITALS: BP 134/87
== END 2018-10-02 12:37 | disposition home or self-care (01) ==
LOC: ED 11:27
DX: M54.5 Low back pain (principal); I10 Essential (primary) hypertension
CPT/HCPCS: 96372; 99283; A9270

== ENCOUNTER 2022-06-23 07:01 | Day surgery (SDC) | payer OTHER ==
[~2022-06-23 07:01] MED LIST: CYCLOPENTOLATE 1% OPHTH DROPS 2 ML ONE; KETOROLAC 0.45% OPHTH DROPS ONE; PHENYLEPHRINE 2.5% OPHTH 2 ML DROPS ONE; PROPARACAINE 0.5% OPHTH DROPS 15 ML ONE
--- NOTE | 2022-06-23 07:04 | ANESTHESIA ---
Pre-Anesthesia VS, & Labs - Diagnosis L senile combined cataract - Procedure extraction L cataract w IOL Height: 5 ft 8 in - NPO >8 hours - Is Patient ?: No - Lab Results Lab results reviewed: No Home Medications and Allergies Home Medications: Ambulatory Orders Famotidine [Pepcid] 20 mg PO BID 06/22/22 Omeprazole Magnesium [Prilosec] 2.5 mg PO DAILY 06/22/22 Potassium Citrate [Potassium] 99 mg PO DAILY 06/22/22 buPROPion [Wellbutrin Sr] 100 mg PO BID 06/22/22 amLODIPine [Norvasc] 10 mg PO DAILY 04/21/18 methocarbamoL [Robaxin] 500 mg PO Q6H 08/09/18 Famotidine [Pepcid] 20 mg PO BID 06/22/22 Omeprazole Magnesium [Prilosec] 2.5 mg PO DAILY 06/22/22 Potassium Citrate [Potassium] 99 mg PO DAILY 06/22/22 buPROPion [Wellbutrin Sr] 100 mg PO BID 06/22/22 Allergies/Adverse Reactions: Allergies Allergy/AdvReac Type Severity Reaction Status Date / Time No Known Drug Allergies Allergy Verified 10/02/18 11:40 Anes History & Medical History - Anesthetic History Anesthesia Complications: reports: No previous complications Family history of Anesthesia Complications: Denies Family history of Malignant Hyperthermia: Denies - Medical History Cardiovascular: reports: Hypertension, Murmur Pulmonary: reports: None Gastrointestinal: reports: GERD, Other Urinary: reports: None Musculoskeletal: reports: Fibromyalgia, Chronic back pain, Other Endocrine/Autoimmune: reports: None Smoking Status: Never smoker Psychosocial: reports: Anxiety, Substance abuse, Opioid - Surgical History General: reports: Colonoscopy, EGD Eyes Ears Nose Throat (EENT): reports: Other Orthopedic: reports: Other Exam General: Alert, Oriented x3, Cooperative Dental: WNL Mouth Openin Fingerbreadth Neck Mobility: Normal Mallampati classification: II Respiratory: Lungs clear, Normal breath sounds, No respiratory distress Cardiovascular: Regular rate Neurological: Normal speech Mental/Cognitive Status: Alert/Oriented X3, Normal for patient Cognitive Status: Within normal limits Plan Anesthesia Type: MAC Consent for Procedure(s) Verified and Reviewed: Yes Code Status: Attempt Resuscitation ASA classification: 2-Mild systemic disease Is this case an emergency?: No
[2022-06-23] MEDS ORDERED: LACTATED RINGERS 1,000 ML IV ONE (07:38)
[2022-06-23] MEDS ORDERED: MIDAZOLAM 2 MG/2 ML VIAL ONE (08:05)
[2022-06-23] MEDS ORDERED: BSS/LIDOCAINE/EPINEPHRINE 1 ML VIAL ONE (08:09)
[2022-06-23] MEDS ORDERED: EPINEPHrine 1 MG/ML AMP ONE (08:09)
[2022-06-23] MEDS ORDERED: TRIAMCIN/MOXIFLOX OPHTHALMIC 0.6 ML VIAL IO ONE ×2 (08:09→08:36)
[2022-06-23] MEDS ORDERED: BRIMONIDINE 0.2% OPHTH DROPS 5 ML ONE (08:09)
[2022-06-23] MEDS ORDERED: VANCOMYCIN OPHTH (TOPICAL) 10 MG/ML SYRINGE ONE (08:09)
[2022-06-23] MEDS ORDERED: TIMOLOL 0.5% OPHTH DROPS ONE (08:09)
[2022-06-23] MEDS ORDERED: fentaNYL 100 MCG/2 ML VIAL ONE (08:24)
[2022-06-23] MEDS ORDERED: TIMOLOL 0.5% OPHTH DROPS OPTH ONE (08:36)
[2022-06-23] MEDS ORDERED: BSS/LIDOCAINE/EPINEPHRINE 1 ML SYRINGE IO ONE (08:36)
[2022-06-23] MEDS ORDERED: BRIMONIDINE 0.2% OPHTH DROPS 5 ML OPTH ONE (08:36)
[2022-06-23] MEDS ORDERED: EPINEPHrine 1 MG/ML AMP IR ONE (08:36)
[2022-06-23] MEDS ORDERED: PROPARACAINE 0.5% OPHTH DROPS 15 ML LEFTEYE ONE (08:36)
[2022-06-23] MEDS ORDERED: VANCOMYCIN OPHTH (TOPICAL) 10 MG/ML SYRINGE TOP ONE (08:37)
[2022-06-23] MEDS ORDERED: LACTATED RINGERS 800 ML IV ONE (08:49)
--- NOTE | 2022-06-23 08:57 | OPERATIVE REPORT ---
Operative Report - Other Other Information/Narrative: Date of Surgery: 06/23/22 Preop Dx: Visually significant cataract left eye. This was the first cataract surgery. Postop Dx: Same Procedure: Phacoemulsification with posterior chamber intraocular lens implant left eye Surgeon: Dr. Jose Snyder Anesthesia: Monitored anesthesia care Complications: None Operative Indications: This is a 61-year-old F with progressive vision loss in the left eye due to 3+ nuclear sclerotic and 2-3+ cortical cataract. Best corrected visual acuity was 20/30 with glare to 20/60 vision in the left eye. Indications for surgery were: - Overall decrease in vision - Difficulty seeing words on a computer screen - Difficulty reading - Difficulty seeing street signs - Difficulty driving in low light or at night - Difficulty driving at night because of headlights from other vehicles - Difficulty with glare or bright lights in any situation The patient was consented at length concerning the risks and benefits of cataract surgery after which the patient expressed a desire to proceed with surgery. Operative Procedure: The patient was taken into OR#3 and placed under monitored anesthesia care. A surgical time-out was conducted confirming correct patient, correct procedure, and correct surgical site. The patient was given topical anesthesia and then prepped and draped in the usual sterile fashion. The eye was entered at the 6 and 3 oclock positions. Intracameral Shugarcaine was injected into the anterior chamber followed by a dispersive viscoelastic. A continuous-tear curvilinear capsulorhexis was performed. The nucleus was hydrodissected and phacoemulsified. The cortex was evacuated using automated infusion and aspiration. A cohesive viscoelastic was injected into the capsular bag and a 24.5 diopter intraocular lens was inserted into the bag. Infusion and aspiration were used to evacuate the viscoelastic materials from the eye. The wounds were hydrated and the eye inflated to physiologic pressure using balanced salt solution. Approximately 0.25ml of a mixture of triamcinolone and moxifloxacin was injected trans-sclerally into the vitreous in the inferotemporal quadrant using a 30 gauge cannula. An additional 0.55ml of a mixture of triamcinolone and moxifloxacin was injected subconjunctivally in the superior quadrant for infection and inflammation prophylaxis. Wound integrity was checked with Weck-Kristine sponges. The patient was taken from the operating room in good condition and given post-op instructions.
[2022-06-23 08:58] VITALS: BP 136/76
--- NOTE | 2022-06-23 09:08 | ANESTHESIA POST OP EVALUATION ---
Anesthesia Post Eval - Post Anesthesia Eval Vitals: Last Vital Signs Temp 37.1 C 06/23/22 08:49 Pulse 64 06/23/22 08:49 Resp 14 06/23/22 08:49 BP 136/76 H 06/23/22 08:49 Pulse Ox 100 06/23/22 08:49 O2 Flow Rate CV Function Including HR & BP: Stable Pain Control: Satisfactory Nausea & Vomiting: Negative Mental Status: Baseline Respiratory Status: Airway Patent Hydration Status: Satisfactory Anesthesia Complications: None
== END 2022-06-23 07:02 | disposition home or self-care (01) ==
LOC: SDS 07:01
PROVIDERS: ATTEND Ophthalmology
DX: H25.812 Combined forms of age-related cataract, left eye (principal); F41.9 Anxiety disorder, unspecified
CPT/HCPCS: 66984; A9270; J3490; J7120

== ENCOUNTER 2022-08-04 08:41 | Day surgery (SDC) | payer OTHER ==
[2022-08-04] MEDS ORDERED: LACTATED RINGERS 1,000 ML IV ONE ×2 (09:20→11:04)
--- NOTE | 2022-08-04 10:26 | ANESTHESIA ---
Pre-Anesthesia VS, & Labs - Diagnosis right senile combined cataract - Procedure right cataract extraction with iol Vital Signs: Temp Pulse Resp BP Pulse Ox O2 Flow Rate 36.9 C 67 14 135/57 H 100 08/04/22 09:00 08/04/22 09:00 08/04/22 09:00 08/04/22 09:00 08/04/22 09:00 Height: 5 ft 8 in Weight (kg): 59 kg Body Mass Index: 19.8 BMI Classification: Normal - NPO >8 hours - Is Patient ?: No Home Medications and Allergies amLODIPine [Norvasc] 10 mg PO DAILY 04/21/18 methocarbamoL [Robaxin] 500 mg PO Q6H 08/09/18 Famotidine [Pepcid] 20 mg PO BID 06/22/22 Omeprazole Magnesium [Prilosec] 2.5 mg PO DAILY 06/22/22 Potassium Citrate [Potassium] 99 mg PO DAILY 06/22/22 buPROPion [Wellbutrin Sr] 100 mg PO BID 06/22/22 Allergies/Adverse Reactions: Allergies Allergy/AdvReac Type Severity Reaction Status Date / Time No Known Drug Allergies Allergy Verified 08/03/22 12:08 Anes History & Medical History - Anesthetic History Anesthesia Complications: reports: No previous complications - Medical History Cardiovascular: reports: Hypertension, Murmur Pulmonary: reports: None Gastrointestinal: reports: GERD, Other Urinary: reports: None Musculoskeletal: reports: Fibromyalgia, Chronic back pain, Other Endocrine/Autoimmune: reports: None Smoking Status: Never smoker - Surgical History General: reports: Colonoscopy, EGD Eyes Ears Nose Throat (EENT): reports: Cataracts, Other Orthopedic: reports: Other Exam General: Alert, Oriented x3, Cooperative Dental: WNL Mouth Opening: Greater than 4 Fingerbreadths Neck Mobility: Normal Mallampati classification: II Respiratory: Lungs clear Cardiovascular: Regular rate Plan Anesthesia Type: MAC Consent for Procedure(s) Verified and Reviewed: Yes Code Status: Attempt Resuscitation ASA classification: 2-Mild systemic disease Is this case an emergency?: No
[2022-08-04] MEDS ORDERED: TRIAMCIN/MOXIFLOX OPHTHALMIC 0.6 ML VIAL IO ONE ×2 (10:28→10:55)
[2022-08-04] MEDS ORDERED: BRIMONIDINE 0.2% OPHTH DROPS 5 ML ONE (10:29)
[2022-08-04] MEDS ORDERED: BSS/LIDOCAINE/EPINEPHRINE 1 ML VIAL ONE (10:29)
[2022-08-04] MEDS ORDERED: EPINEPHrine 1 MG/ML AMP ONE (10:29)
[2022-08-04] MEDS ORDERED: TIMOLOL 0.5% OPHTH DROPS ONE (10:29)
[2022-08-04] MEDS ORDERED: VANCOMYCIN OPHTH (TOPICAL) 10 MG/ML SYRINGE ONE (10:29)
[2022-08-04] MEDS ORDERED: MIDAZOLAM 2 MG/2 ML VIAL ONE (10:29)
[2022-08-04] MEDS ORDERED: fentaNYL 100 MCG/2 ML VIAL ONE ×2 (10:46→10:51)
[2022-08-04] MEDS ORDERED: TIMOLOL 0.5% OPHTH DROPS OPTH ONE (10:54)
[2022-08-04] MEDS ORDERED: BSS/LIDOCAINE/EPINEPHRINE 1 ML SYRINGE IO ONE (10:54)
[2022-08-04] MEDS ORDERED: BRIMONIDINE 0.2% OPHTH DROPS 5 ML OPTH ONE (10:54)
[2022-08-04] MEDS ORDERED: EPINEPHrine 1 MG/ML AMP IR ONE (10:54)
[2022-08-04] MEDS ORDERED: VANCOMYCIN OPHTH (TOPICAL) 10 MG/ML SYRINGE TOP ONE (10:55)
[2022-08-04] MEDS ORDERED: PROPARACAINE 0.5% OPHTH DROPS 15 ML RIGHTEYE ONE (10:55)
--- NOTE | 2022-08-04 11:12 | OPERATIVE REPORT ---
Operative Report - Other Other Information/Narrative: Date of Surgery: 08/04/22 Preop Dx: Visually significant cataract right eye. Cataract surgery was performed in the left eye on . Postop Dx: Same Procedure: Phacoemulsification with posterior chamber intraocular lens implant right eye Surgeon: Dr. Jose Snyder Anesthesia: Monitored anesthesia care Complications: None Operative Indications: This is a 61-year-old F with progressive vision loss in the right eye due to 3+ nuclear scleroticand 3+ cortical cataract. Best corrected visual acuity was 20/50 with glare to 20/100 vision in the right eye. Indications for surgery were: - Overall decrease in vision - Difficulty seeing words on a computer screen - Difficulty reading - Difficulty seeing words, closed captions, or game scores on TV - Difficulty seeing street signs - Difficulty driving in low light or at night - Difficulty driving at night because of headlights from other vehicles - Difficulty with glare or bright lights in any situation The patient was consented at length concerning the risks and benefits of cataract surgery after which the patient expressed a desire to proceed with surgery. Operative Procedure: The patient was taken into OR#3 and placed under monitored anesthesia care. A surgical time-out was conducted confirming correct patient, correct procedure, and correct surgical site. The patient was given topical anesthesia and then prepped and draped in the usual sterile fashion. The eye was entered at the 6 and 3 oclock positions. Intracameral Shugarcaine was injected into the anterior chamber followed by a dispersive viscoelastic. A continuous-tear curvilinear capsulorhexis was performed. The nucleus was hydrodissected and phacoemulsified. The cortex was evacuated using automated infusion and aspiration. A cohesive viscoelastic was injected into the capsular bag and a 24.5 diopter intraocular lens was inserted into the bag. Infusion and aspiration were used to evacuate the viscoelastic materials from the eye. The wounds were hydrated and the eye inflated to physiologic pressure using balanced salt solution. Approximately 0.25ml of a mixture of triamcinolone and moxifloxacin was injected trans-sclerally into the vitreous in the inferotemporal quadrant using a 30 gauge cannula. An additional 0.25ml of a mixture of triamcinolone and moxifloxacin was injected subconjunctivally in the superior quadrant for infection and inflammation prophylaxis. Wound integrity was checked with Weck-Kristine sponges. The patient was taken from the operating room in good condition and given post-op instructions.
--- NOTE | 2022-08-04 11:19 | ANESTHESIA POST OP EVALUATION ---
Anesthesia Post Eval - Post Anesthesia Eval Vitals: Last Vital Signs Temp 36.4 C L 08/04/22 11:06 Pulse 71 08/04/22 11:06 Resp 16 08/04/22 11:06 BP 105/85 H 08/04/22 11:06 Pulse Ox 99 08/04/22 11:06 O2 Flow Rate CV Function Including HR & BP: Stable Pain Control: Satisfactory Nausea & Vomiting: Negative Mental Status: Baseline Respiratory Status: Airway Patent Hydration Status: Satisfactory Anesthesia Complications: None
[2022-08-04 11:43] VITALS: BP 122/62
== END 2022-08-04 08:42 | disposition home or self-care (01) ==
LOC: SDS 08:41
PROVIDERS: ATTEND Ophthalmology
PROC: 08DJ3ZZ Extraction of Right Lens, Percutaneous Approach (ICD-10-PCS; principal; 2022-08-04 10:00)
DX: H25.811 Combined forms of age-related cataract, right eye (principal); I10 Essential (primary) hypertension; Z98.42 Cataract extraction status, left eye
CPT/HCPCS: 66984; A9270; J3490; J7120